=== PATIENT | female | born 1960 | race Caucasian/White ===

== ENCOUNTER 2020-01-29 13:00 | Emergency (ER) | payer MEDICARE, OTHER ==
[2020-01-29] MEDS: Acetaminophen/HYDROcodone 325-10 MG Tab PO ONE (13:15)
--- NOTE | 2020-01-29 14:15 | CT ---
[id number] CT/CT Head WO IV EXAM: CT Head WO IV CLINICAL DATA: TRAUMA COMPARISON: NO PREVIOUS SIMILAR EXAM IS AVAILABLE FOR COMPARISON. FINDINGS: There is no mass or mass effect. There is no hemorrhage or hydrocephalus. There are no extra-axial fluid collections. There are no sites of abnormal attenuation. IMPRESSION: NO PLAIN CT EVIDENCE OF ACUTE INTRACRANIAL PROCESS. Juan Feliz MD 01/29/20 [id number] Thank you for allowing us to participate in the care of your patient.
--- NOTE | 2020-01-29 14:19 | CT ---
[id number] CT/CT Facial Bones WO IV Exam: CT Facial Bones WO IV Clinical Data: TRAUMA COMPARISON: NO PREVIOUS SIMILAR EXAM IS AVAILABLE FINDINGS: Bilateral nasal fractures are seen There is no orbital fracture There is minimal opacification of the right maxillary sinus There is no orbital emphysema Degenerative changes are seen involving the cervical spine IMPRESSION: BILATERAL SLIGHTLY DEPRESSED NASAL FRACTURES Juan Feliz MD 01/29/20 [id number] Thank you for allowing us to participate in the care of your patient.
--- NOTE | 2020-01-29 16:15 | EDM.PDOC ---
ED HPI GENERAL MEDICAL PROBLEM - General Chief Complaint: Laceration Stated Complaint: LACERATIONS TO THE FACE Time Seen by Provider: 01/29/20 13:00 Source of Information: Reports: Patient, Family History Limitations: Reports: No Limitations - History of Present Illness INITIAL COMMENTS - FREE TEXT/NARRATIVE: Pt. presents to ER with complaints of mechanical fall onto face today. Pt. states that she was walking and became tangled up in her dog lead and tripped, landing directly onto her face. Pt. states that she developed onset of bilateral epistaxis. She does not think she had any LOC but is not 100% sure. Primary complaint is of nose and forehead pain, as well as discomfort to the palms of her hands and knees from the fall. Denies any neck pain. No chest pain or shortness of breath. Denies any abdominal discomfort. Denies any pelvic pain. She has been able to ambulate without difficulty. She does complain of being a bit "dizzy". Onset: Today Onset Date: 01/29/20 Location: Reports: Head, Face, Upper Extremity, Left, Upper Extremity, Right, Lower Extremity, Left, Lower Extremity, Right. Denies: Neck, Chest, Abdomen, Back, Pelvis Quality: Reports: Dull, Throbbing Severity: Moderate Face/Facial Pain Score (Numeric/FACES): 9 - Related Data Allergies Allergy/AdvReac Type Severity Reaction Status Date / Time No Known Allergies Allergy Verified 01/29/20 13:22 Home Meds: Home Meds . [Unable to Verify Home Med List] 01/29/20 [History] Past Medical History Cardiovascular History: Reports: Hypertension Psychiatric History: Reports: Anxiety Oncologic (Cancer) History: Reports: Lymphoma Social & Family History - Tobacco Use Smoking Status *Q: Unknown Ever Smoked ED ROS GENERAL - Review of Systems Review Of Systems: See Below Constitutional: Reports: No Symptoms HEENT: Reports: Nosebleed, Nose Pain Respiratory: Reports: No Symptoms Cardiovascular: Reports: No Symptoms Endocrine: Reports: No Symptoms GI/Abdominal: Reports: No Symptoms : Reports: No Symptoms Musculoskeletal: Reports: Hand Pain, Leg Pain Skin: Reports: No Symptoms Neurological: Reports: No Symptoms Psychiatric: Reports: No Symptoms Hematologic/Lymphatic: Reports: No Symptoms Immunologic: Reports: No Symptoms ED EXAM, SKIN/RASH Exam: See Below Exam Limited By: No Limitations General Appearance: Alert, WD/WN, No Apparent Distress Eye Exam: Bilateral Eye: Normal Fundi, Normal Inspection, PERRL Ears: Normal External Exam, Normal Canal, Hearing Grossly Normal, Normal TMs Nose: Other (evidence of recent epistaxis, active bleeding from nares. Several small abrasions/superficial lacerations to nose and face, the biggest to the tip of the nose.) Throat/Mouth: Normal Inspection, Normal Lips, Normal Teeth, Normal Gums, Normal Oropharynx, Normal Voice, No Airway Compromise Head: Facial Swelling, Facial Tenderness Neck: Normal Inspection, Supple, Non-Tender, Full Range of Motion Respiratory/Chest: No Respiratory Distress, Lungs Clear, Normal Breath Sounds, No Accessory Muscle Use, Chest Non-Tender Cardiovascular: Normal Peripheral Pulses, Regular Rate, Rhythm, No Edema, No Gallop, No JVD, No Murmur, No Rub Peripheral Pulses: 4+: Radial (L) GI/Abdominal: Soft, Non-Tender, No Distention, No Mass, Pelvis Stable (Female) Exam: Deferred Rectal (Female) Exam: Deferred Back Exam: Normal Inspection, Full Range of Motion Extremities: Other (superficial abrasions/contusions to palms of hands. ROM is WNL. No obvious deformity to lower extremities.) Neurological: Alert, Oriented, CN II-XII Intact, Normal Cognition, Normal Gait, Normal Reflexes, No Motor/Sensory Deficits Psychiatric: Normal Affect, Normal Mood Skin: Warm, Dry, Intact, Normal Color, No Rash Location, Skin: Head, Face, Upper Extremity, Right, Upper Extremity, Left Course - Vital Signs Last Recorded V/S: Last Vital Signs Temp 36.2 C 01/29/20 13:00 Pulse 81 01/29/20 13:00 Resp 16 01/29/20 13:00 BP 147/81 H 01/29/20 13:00 Pulse Ox 98 01/29/20 13:00 - Orders/Labs/Meds Meds: Medications Discontinued Medications Generic Name Dose Route Start Last Admin Trade Name Freq PRN Reason Stop Dose Admin Hydrocodone Bitart/Acetaminophen 1 tab 01/29/20 13:08 01/29/20 13:15 [place] 325-10 Mg PO 01/29/20 13:09 1 tab ONETIME ONE Administration - Radiology Interpretation Free Text/Narrative:: CT head and facial bones obtained. Evidence of mildly impacted nasal bone fractures. No other obvious facial trauma noted. CT brain is negative. Departure - Departure Time of Disposition: 15:00 Disposition: Home, Self-Care 01 Clinical Impression: Nasal bone fractures - Discharge Information Instructions: Acetaminophen; Hydrocodone tablets or capsules, Head Injury, Adult, Nasal Fracture, [id number] Referrals: Hector Gomez MD [Primary Care Provider] - Forms: ED Department Discharge Additional Instructions: Follow-up on Feb.01 at 9:[address] Minor. The address is [address] [place] [address]. The clinic is located in the basement of the building next to the parking garage. The number of the clinic is [phone] if you need to change the time, etc. [place] 10/325mg 1 every 6 hours as needed for pain. Return to ER if you have persistent vomiting, decreased level of consciousness, or redness/swelling to the lacerations. Keep nose dry for 48 hours. Sepsis Event Note (ED) - Evaluation Sepsis Screening Result: No Definite Risk - Focused Exam Vital Signs: Vital Signs Temp Pulse Resp BP Pulse Ox 01/29/20 13:00 36.2 C 81 16 147/81 H 98 - Problem List Review Problem List Initiated/Reviewed/Updated: Yes - Assessment/Plan Plan: Follow-up on Feb.01 at 9:[address] Minor. The address is [address] [place] [address]. The clinic is located in the basement of the building next to the parking garage. The number of the clinic is [phone] if you need to change the time, etc. [place] 10/325mg 1 every 6 hours as needed for pain. Return to ER if you have persistent vomiting, decreased level of consciousness, or redness/swelling to the lacerations. Keep nose dry for 48 hours.
== END 2020-01-29 15:13 | disposition home or self-care (01) ==
LOC: VM.ED 13:00
DX: S02.2XXA Fracture of nasal bones, initial encounter for closed fracture (principal); S01.21XA Laceration without foreign body of nose, initial encounter; S01.81XA Laceration without foreign body of other part of head, initial encounter; S60.222A Contusion of left hand, initial encounter; S60.221A Contusion of right hand, initial encounter; I10 Essential (primary) hypertension
CPT/HCPCS: 12011; 70450; 70486; 99283; A9270